=== PATIENT | female | born 1945 | race Caucasian/White ===

== ENCOUNTER → 2017-01-11 | Outpatient (REF) | payer MEDICARE ==
[~2017-01-11] MED LIST: /ESCI20TA; /MOXI40TA; /SUCR1TA; ACET650T12 PO; ALBU83IN INH; ALBUTEROL NEBULIZER; ASPI1TAB PO; ASPIRIN; ATROVENT0.02%; BABY81CH; BUDE20IN; CALCARB; COLA100C PO; COLA100C2; COLA50CA; CRES40TA; CRES40TA PO; FLUC10TA; HYDR-3713 PO; IBUP400T; LEVA750T PO; LEXA1TAB2 PO; LISI-542 PO; LISI10TA4; METO10TA2; MIRA3350 PO; NICO21PAT TD; PRED10TA PO; PRED10TA2; PROAAER; SPIRIVA; TIOT18INH INH; XOPE1.252; [UNRECOGNIZED DRUG - CODE]; [UNRECOGNIZED DRUG - OTHER]; cepacol; robitussin
== END ==
LOC: M LAB REF 13:18
PROVIDERS: ATTEND Internal Medicine Pulmonary Disease
DX: R05 Cough (principal)

== ENCOUNTER → 2017-02-09 | Outpatient (REF) | payer MEDICARE, MEDICAID ==
[~2017-02-09] MED LIST changes: -COLA100C PO; +COLA100C3 PO
== END ==
LOC: M SMT 14:02
PROVIDERS: ATTEND Nurse Practitioner Women's Health
DX: R32 Unspecified urinary incontinence (principal); R39.15 Urgency of urination
CPT/HCPCS: 51798; 81001; 87086; 88108; G0463

== ENCOUNTER → 2017-02-11 | Outpatient (CLI) | payer MEDICARE, MEDICAID ==
[~2017-02-11] MED LIST changes: +COLA100C PO; -COLA100C3 PO
[2017-02-11 14:31] LABS: ANION GAP 7 MEQ/L (8-16); BLOOD UREA NITROGEN 17 MG/DL (7-18); CARBON DIOXIDE LEVEL 31 MEQ/L (21-32); CHLORIDE LEVEL 102 MEQ/L (98-107); CREATININE FOR GFR 0.75 MG/DL (0.55-1.02); GLOMERULAR FILTRATION RATE > 60.0 (>45); GLUCOSE, FASTING 74 MG/DL (80-110); POTASSIUM SERUM 4.6 MEQ/L (3.5-5.1); SODIUM LEVEL 140 MEQ/L (136-145)
== END ==
LOC: M WUC 11:44
PROVIDERS: ATTEND Nurse Practitioner Women's Health
DX: R31.29 Other microscopic hematuria (principal)

== ENCOUNTER → 2017-02-17 | Outpatient (CLI) | payer MEDICARE, MEDICAID ==
[~2017-02-17] MED LIST changes: +ISOVUE-370 76% 100ML VIAL (Q9967) As Ordered ONE
--- NOTE | 2017-02-17 16:30 | REP ---
Clinical: Microscopic hematuria. Technique: Axial precontrast, contrast enhanced, and delayed images of the abdomen and pelvis using 100 ml Isovue 370 intravenous contrast material with coronal and sagittal re-formations. Findings: The bilateral kidneys/ureters and bladder are normal in all phases of enhancement. No nephrolithiasis, hydroureternephrosis, cystic or mass lesion appreciated. Liver, spleen, pancreas, gallbladder, bilateral adrenal glands are normal. The enteric system is without obstruction or acute inflammatory process. Surgical clips in the upper abdomen possibly related to prior hernia repair. Pelvis demonstrates normal bladder and evidence for prior hysterectomy. No ascites. No adenopathy. No mass. No free air. Musculoskeletal structures without focal osseous abnormality. Lung bases suggest emphysematous changes. Impression: 1. Normal urinary tract system. 2. No acute intra-abdominal or pelvic pathology appreciated. Signed by Alex Koenig MD 02/17/2017 04:22 P
== END ==
LOC: M RAD 14:04
PROVIDERS: ATTEND Nurse Practitioner Women's Health
DX: R31.29 Other microscopic hematuria (principal)
CPT/HCPCS: 74178; Q9967

== ENCOUNTER → 2017-08-22 | Outpatient (CLI) | payer MEDICARE, MEDICAID ==
[~2017-08-22] MED LIST changes: -COLA100C PO; +COLA100C5 PO; -ISOVUE-370 76% 100ML VIAL (Q9967) As Ordered ONE; -LEVA750T PO; +LEVA750T7 PO
[2017-08-22 14:35] LABS: MEAN CORPUSCULAR HEMOGLOBIN 30.5 pg (27.0-33.0); MEAN CORPUSCULAR HGB CONC 32.3 g/dl (32.0-36.5); MEAN CORPUSCULAR VOLUME 94.3 fl (80.0-96.0); WHITE BLOOD COUNT 6.8 10^3/uL (4.0-10.0)
[2017-08-22 15:24] LABS: ALBUMIN 3.3 GM/DL (3.2-5.2); ALKALINE PHOSPHATASE 83 U/L (45-117); ALT/SGPT 14 U/L (12-78); ANION GAP 8 MEQ/L (8-16); AST/SGOT 11 U/L (15-37); BILIRUBIN,TOTAL 0.3 MG/DL (0.2-1.0); BLOOD UREA NITROGEN 15 MG/DL (7-18); CARBON DIOXIDE LEVEL 29 MEQ/L (21-32); CHLORIDE LEVEL 101 MEQ/L (98-107); CHOLESTEROL LEVEL 162 MG/DL (<200); CREATININE FOR GFR 0.75 MG/DL (0.55-1.02); GLOMERULAR FILTRATION RATE > 60.0 (>39); GLUCOSE, FASTING 93 MG/DL (83-110); POTASSIUM SERUM 4.9 MEQ/L (3.5-5.1); SODIUM LEVEL 138 MEQ/L (136-145); TOTAL PROTEIN 6.6 GM/DL (6.4-8.2); TRIGLYCERIDES LEVEL 127 MG/DL (<150)
== END ==
LOC: M WUC 08:34
PROVIDERS: ATTEND Family Medicine
DX: M85.9 Disorder of bone density and structure, unspecified (principal); Z79.899 Other long term (current) drug therapy; R31.29 Other microscopic hematuria

== ENCOUNTER → 2017-08-22 | Outpatient (REF) | payer MEDICARE, MEDICAID | LOC: M SMT 13:08 | PROVIDERS: ATTEND Urology | DX: R31.29 Other microscopic hematuria (principal) ==

== ENCOUNTER → 2017-08-25 | Outpatient (CLI) | payer MEDICARE, MEDICAID | LOC: M OT 09:36 | PROVIDERS: ATTEND Nurse Practitioner Family | DX: M18.11 Unilateral primary osteoarthritis of first carpometacarpal joint, right hand (principal) | CPT/HCPCS: 97760; G8984; G8985; G8986 ==

== ENCOUNTER → 2017-09-16 | Outpatient (CLI) | payer MEDICARE, MEDICAID ==
--- NOTE | 2017-09-16 16:40 | REP ---
Low-dose lung screening CT: The study is performed without IV contrast and the images are presented at lung windowing only: Comparison is the chest CT with IV contrast and 12/18/2015. On the current study there are no nodules or masses. There are no infiltrates or effusions. The right upper lobe infiltrates that were present on the comparison study have resolved. Impression: Category [address] low-dose screening chest CT. The recommendation is for annual follow-up low-dose screening chest CT. Signed by Nash Mccrary MD 09/16/2017 04:31 P
== END ==
LOC: M RAD 13:33
PROVIDERS: ATTEND Internal Medicine Pulmonary Disease
DX: Z12.2 Encounter for screening for malignant neoplasm of respiratory organs (principal); F17.218 Nicotine dependence, cigarettes, with other nicotine-induced disorders

== ENCOUNTER → 2017-10-10 | Outpatient (REF) | payer MEDICARE, MEDICAID | LOC: M LAB REF 16:58 | PROVIDERS: ATTEND Internal Medicine Pulmonary Disease | DX: J44.1 Chronic obstructive pulmonary disease with (acute) exacerbation (principal) ==

== ENCOUNTER 2018-01-25 06:20 | Day surgery (SDC) | payer MEDICARE, MEDICAID ==
[~2018-01-25 06:20] MED LIST changes: -/ESCI20TA; -/MOXI40TA; -/SUCR1TA; -ACET650T12 PO; +ACETAMINOPHEN 325 MG TAB PO; -ALBU83IN INH; -ALBUTEROL NEBULIZER; -ASPI1TAB PO; -ASPIRIN; -ATROVENT0.02%; -BABY81CH; -BUDE20IN; -CALCARB; -COLA100C2; -COLA100C5 PO; -COLA50CA; -CRES40TA; -CRES40TA PO; -FLUC10TA; -HYDR-3713 PO; -IBUP400T; -LEVA750T7 PO; -LEXA1TAB2 PO; -LISI-542 PO; -LISI10TA4; -METO10TA2; -MIRA3350 PO; -NICO21PAT TD; -PRED10TA PO; -PRED10TA2; -PROAAER; -SPIRIVA; -TIOT18INH INH; -XOPE1.252; -[UNRECOGNIZED DRUG - CODE]; -[UNRECOGNIZED DRUG - OTHER]; -cepacol; -robitussin
[2018-01-25] MEDS ORDERED: LIDOCAINE 1% MDV 20ML VIAL SQ (06:30)
[2018-01-25] MEDS ORDERED: fentaNYL 100 MCG/2 ML INJECTION (J3010) As Ordered (06:52)
[2018-01-25] MEDS ORDERED: MIDAZOLAM INJ 2 MG/2 ML VIAL (J2250) As Ordered (06:52)
[2018-01-25] MEDS ORDERED: PHENYLEPHRINE HCL 10 % OPHTH. SOL 5ML OD (07:00)
[2018-01-25] MEDS ORDERED: PROPARACAINE 0.5% OPHTH SOL 15ML OD (07:01)
[2018-01-25] MEDS: PHENYLEPHRINE 2.5% OPHTH SOL 2ML OD (07:07)
[2018-01-25] MEDS: CYCLOPENTOLATE 2% OPHTH SOLN 2ML BTL OD (07:07)
[2018-01-25] MEDS: LIDOCAINE 3.5 % 1ML OPHTH TOPICAL GEL OU (07:07)
[2018-01-25] MEDS: OFLOXACIN 0.3 % (OCUFLOX) OPTH SOL 5ML OD (07:07)
[2018-01-25] MEDS: TROPICAMIDE 1% OPHTH SOLN 2ML OD (07:08)
[2018-01-25] MEDS: POVIDONE-IODINE 5% OPHTH PREP SOL 30ML As Ordered (08:57)
[2018-01-25] MEDS: HEALON DUET (HEALON 10MG/ML 0.55ML & HEALON ENDOCOAT 30MG/ML 0.85ML) As Ordered (09:02)
[2018-01-25] MEDS: LIDOCAINE 1% SDV 5 ML VIAL As Ordered (09:02)
[2018-01-25] MEDS: TRIAMCINOLONE PRES FR 40 MG/ML 1ML(TRIESENCE)(OR EYE ONLY)(J3300 PER 1MG) As Ordered (09:02)
[2018-01-25] MEDS: BSS with VANC/TOB/EPI for EYE CASES IR (09:03)
[2018-01-25] MEDS: LIDOCAINE 2% W/EPIN INJ 20ML **PRES FREE As Ordered (09:03)
[2018-01-25] MEDS: MOXIFLOXACIN IN BSS 0.25MG/0.25ML INTRACAMERAL INJ (OR EYE ONLY)(J2280) As Ordered (09:03)
[2018-01-25] MEDS ORDERED: KETOROLAC 0.5% OPHTH SOLN OD (09:30)
[2018-01-25] MEDS ORDERED: ONDANSETRON 4MG/2ML VIAL (J2405) IV (09:30)
[2018-01-25] MEDS ORDERED: TRIMETHOBENZAMIDE 300 MG CAP PO (09:30)
[2018-01-25] MEDS: AcetaZOLAMIDE 500 MG ER CAP PO (09:43)
[2018-01-25] MEDS: ACETAMINOPHEN TAB 650MG DOSE (2X325MG) PO (09:45)
== END 2018-01-25 10:34 | disposition home or self-care (01) ==
LOC: M SDC 06:20
DX: H26.9 Unspecified cataract (principal); I10 Essential (primary) hypertension; E78.5 Hyperlipidemia, unspecified; I73.9 Peripheral vascular disease, unspecified; K44.9 Diaphragmatic hernia without obstruction or gangrene; K21.9 Gastro-esophageal reflux disease without esophagitis; K58.9 Irritable bowel syndrome, unspecified; R29.898 Other symptoms and signs involving the musculoskeletal system; M12.9 Arthropathy, unspecified; M54.9 Dorsalgia, unspecified; M81.0 Age-related osteoporosis without current pathological fracture; C44.311 Basal cell carcinoma of skin of nose; F41.9 Anxiety disorder, unspecified; F32.9 Major depressive disorder, single episode, unspecified; J44.9 Chronic obstructive pulmonary disease, unspecified; T88.59XD Other complications of anesthesia, subsequent encounter; Z88.5 Allergy status to narcotic agent; Z91.030 Bee allergy status; Z91.040 Latex allergy status; Z91.048 Other nonmedicinal substance allergy status; Z86.69 Personal history of other diseases of the nervous system and sense organs; Z90.710 Acquired absence of both cervix and uterus; Z72.0 Tobacco use
CPT/HCPCS: 66984

== ENCOUNTER 2018-03-20 06:09 | Day surgery (SDC) | payer MEDICARE, MEDICAID ==
[~2018-03-20 06:09] MED LIST changes: +LIDOCAINE 1% MDV 20ML VIAL SQ; +SLF 3 ML SYR IV
[2018-03-20] MEDS: OFLOXACIN 0.3 % (OCUFLOX) OPTH SOL 5ML OS (06:50)
[2018-03-20] MEDS: PHENYLEPHRINE 2.5% OPHTH SOL 2ML OS (06:50)
[2018-03-20] MEDS: TROPICAMIDE 1% OPHTH SOLN 2ML OS (06:50)
[2018-03-20] MEDS: CYCLOPENTOLATE 2% OPHTH SOLN 2ML BTL OS (06:50)
[2018-03-20] MEDS: LIDOCAINE 3.5 % 1ML OPHTH TOPICAL GEL OU (06:51)
[2018-03-20] MEDS ORDERED: PHENYLEPHRINE HCL 10 % OPHTH. SOL 5ML OS (07:00)
[2018-03-20] MEDS ORDERED: fentaNYL 100 MCG/2 ML INJECTION (J3010) As Ordered (07:12)
[2018-03-20] MEDS ORDERED: MIDAZOLAM INJ 2 MG/2 ML VIAL (J2250) As Ordered (07:13)
[2018-03-20] MEDS: POVIDONE-IODINE 5% OPHTH PREP SOL 30ML As Ordered (08:47)
[2018-03-20] MEDS: TRIAMCINOLONE PRES FR 40 MG/ML 1ML(TRIESENCE)(OR EYE ONLY)(J3300 PER 1MG) As Ordered (08:48)
[2018-03-20] MEDS: BSS with VANC/TOB/EPI for EYE CASES IR (08:54)
[2018-03-20] MEDS: LIDOCAINE 1% SDV 5 ML VIAL As Ordered (08:54)
[2018-03-20] MEDS: LIDOCAINE 2% W/EPIN INJ 20ML **PRES FREE As Ordered (08:54)
[2018-03-20] MEDS: HEALON DUET (HEALON 10MG/ML 0.55ML & HEALON ENDOCOAT 30MG/ML 0.85ML) As Ordered (08:54)
[2018-03-20] MEDS: MOXIFLOXACIN IN BSS 0.25MG/0.25ML INTRACAMERAL INJ (OR EYE ONLY)(J2280) As Ordered (08:54)
[2018-03-20] MEDS: AcetaZOLAMIDE 500 MG ER CAP PO (09:23)
[2018-03-20] MEDS ORDERED: TRIMETHOBENZAMIDE 300 MG CAP PO (09:30)
== END 2018-03-20 09:38 | disposition home or self-care (01) ==
LOC: M SDC 06:09
DX: H25.9 Unspecified age-related cataract (principal); I10 Essential (primary) hypertension; E78.5 Hyperlipidemia, unspecified; K44.9 Diaphragmatic hernia without obstruction or gangrene; Z91.040 Latex allergy status; Z91.030 Bee allergy status; Z79.51 Long term (current) use of inhaled steroids; Z79.899 Other long term (current) drug therapy; Z79.82 Long term (current) use of aspirin; J44.9 Chronic obstructive pulmonary disease, unspecified; F17.210 Nicotine dependence, cigarettes, uncomplicated; I73.9 Peripheral vascular disease, unspecified
CPT/HCPCS: 66984

== ENCOUNTER → 2018-04-20 | Outpatient (CLI) | payer MEDICARE, MEDICAID ==
[2018-04-20 09:40] LABS: BASO # 0.1 10^3/uL (0.0-0.2); BASO % 1.3 % (0.0-1.0); EOS # 0.2 10^3/uL (0.0-0.50); EOS % 2.1 % (0.0-3.0); HEMATOCRIT 41.3 % (36.0-47.0); HEMOGLOBIN 13.3 g/dl (12.0-15.5); IMMATURE GRANULOCYTE % 0.1 % (0-3.0); LYMPH # 2.3 10^3/uL (1.5-4.5); LYMPH % 32.9 % (24.0-44.0); MEAN CORPUSCULAR HEMOGLOBIN 28.5 pg (27.0-33.0); MEAN CORPUSCULAR HGB CONC 32.2 g/dl (32.0-36.5); MEAN CORPUSCULAR VOLUME 88.6 fl (80.0-96.0); MONO # 0.7 10^3/uL (0.0-0.8); MONO % 9.7 % (0.0-5.0); NEUTROPHILS # 3.8 10^3/uL (1.8-7.7); NEUTROPHILS % 53.9 % (36.0-66.0); PLATELET COUNT, AUTOMATED 482 10^3/uL (150-450); RED BLOOD COUNT 4.66 10^6/uL (4.00-5.40); RED CELL DISTRIBUTION WIDTH 15.9 % (11.5-14.5); WHITE BLOOD COUNT 7.1 10^3/uL (4.0-10.0)
[2018-04-20 10:13] LABS: ALBUMIN 3.3 GM/DL (3.2-5.2); ALBUMIN/GLOBULIN RATIO 1.03 (1.00-1.93); ALKALINE PHOSPHATASE 73 U/L (45-117); ALT/SGPT 11 U/L (12-78); ANION GAP 5 MEQ/L (8-16); AST/SGOT 12 U/L (7-37); BILIRUBIN,TOTAL 0.2 MG/DL (0.2-1.0); BLOOD UREA NITROGEN 20 MG/DL (7-18); CALCIUM LEVEL 8.4 MG/DL (8.8-10.2); CARBON DIOXIDE LEVEL 29 MEQ/L (21-32); CHLORIDE LEVEL 106 MEQ/L (98-107); CHOLESTEROL LEVEL 149 MG/DL (<200); CHOLESTEROL RISK RATIO 2.483 (<5); CREATININE FOR GFR 0.68 MG/DL (0.55-1.30); FERRITIN 6 NG/ML (8-252); GLOMERULAR FILTRATION RATE > 60.0 (>39); GLUCOSE, FASTING 91 MG/DL (70-100); HDL CHOLESTEROL 60 MG/DL (>40); IRON (FE) 36 UG/DL (50-170); LDL CHOLESTEROL 73.4 MG/DL (<100); NON-HDL-C 89 MG/DL; PERCENT SATURATION 7.3 % (13.2-45.0); POTASSIUM SERUM 4.8 MEQ/L (3.5-5.1); SODIUM LEVEL 140 MEQ/L (136-145); TOTAL IRON BINDING CAPACITY 491 UG/DL (250-450); TOTAL PROTEIN 6.5 GM/DL (6.4-8.2); TRIGLYCERIDES LEVEL 78 MG/DL (<150)
== END ==
LOC: M WUC 08:12
DX: D50.9 Iron deficiency anemia, unspecified (principal); I10 Essential (primary) hypertension
CPT/HCPCS: 83550

== ENCOUNTER → 2018-11-07 | Outpatient (CLI) | payer MEDICARE, MEDICAID | LOC: M RAD 13:01 | DX: Z12.2 Encounter for screening for malignant neoplasm of respiratory organs (principal); F17.218 Nicotine dependence, cigarettes, with other nicotine-induced disorders | CPT/HCPCS: G0297 ==

== ENCOUNTER → 2019-04-11 | Outpatient (CLI) | payer MEDICARE, MEDICAID ==
[~2019-04-11] MED LIST changes: +ACET650T12 PO; -ACETAMINOPHEN 325 MG TAB PO; +ALBU83IN INH; +ALBUTEROL NEBULIZER; +ANOR1AER; +ARNU1INH3 INH; +ASPI81TA26 PO; +ASPIRIN; +ATROVENT0.02%; +AVEL1TAB2; +BABY81CH; +BUDE20IN; +CALCARB; +COLA100C2; +COLA100C5 PO; +COLA50CA; +COMBAER6; +CRES40TA; +CRES40TA PO; +FLUC10TA; +HYDR-3713 PO; +IBUP400T; +LEVA750T7 PO; +LEXA1TAB2; +LEXA1TAB2 PO; -LIDOCAINE 1% MDV 20ML VIAL SQ; +LISI-542 PO; +LISI10TA4; +METO10TA2; +MIRA3350 PO; +NICO21DI3 TD; +OMEP40CA2 PO; +PRED-351 PO; +PRED10TA2; +PROAAER; -SLF 3 ML SYR IV; +SPIRIVA; +SUCR1TAB56; +TIOT18INH INH; +TYLE500T78 PO; +XOPE1.252; +[UNRECOGNIZED DRUG - CODE]; +[UNRECOGNIZED DRUG - OTHER]; +cepacol; +robitussin
[2019-04-11 09:22] LABS: BASO # 0.1 10^3/uL (0.0-0.2); BASO % 2.3 % (0.0-1.0); EOS # 0.2 10^3/uL (0.0-0.50); EOS % 2.9 % (0.0-3.0); HEMATOCRIT 39.1 % (36.0-47.0); HEMOGLOBIN 12.4 g/dl (12.0-15.5); LYMPH # 2.1 10^3/uL (1.5-4.5); LYMPH % 38.2 % (24.0-44.0); MEAN CORPUSCULAR HEMOGLOBIN 27.4 pg (27.0-33.0); MEAN CORPUSCULAR HGB CONC 31.7 g/dl (32.0-36.5); MEAN CORPUSCULAR VOLUME 86.5 fl (80.0-96.0); MONO # 0.7 10^3/uL (0.0-0.8); MONO % 11.6 % (0.0-5.0); NEUTROPHILS # 2.5 10^3/uL (1.8-7.7); NEUTROPHILS % 44.8 % (36.0-66.0); PLATELET COUNT, AUTOMATED 541 10^3/uL (150-450); RED BLOOD COUNT 4.52 10^6/uL (4.00-5.40); WHITE BLOOD COUNT 5.6 10^3/uL (4.0-10.0)
[2019-04-11 09:47] LABS: ALBUMIN 3.1 GM/DL (3.2-5.2); ALT/SGPT 14 U/L (12-78); BILIRUBIN,TOTAL 0.2 MG/DL (0.2-1.0); BLOOD UREA NITROGEN 17 MG/DL (7-18); CALCIUM LEVEL 8.5 MG/DL (8.8-10.2); CARBON DIOXIDE LEVEL 30 MEQ/L (21-32); CHLORIDE LEVEL 103 MEQ/L (98-107); CHOLESTEROL LEVEL 157 MG/DL (<200); CHOLESTEROL RISK RATIO 2.275 (<5); CREATININE FOR GFR 0.64 MG/DL (0.55-1.30); FERRITIN 7 NG/ML (8-252); GLOMERULAR FILTRATION RATE > 60.0 (>39); GLUCOSE, FASTING 95 MG/DL (70-100); HDL CHOLESTEROL 69 MG/DL (>40); IRON (FE) 29 UG/DL (50-170); LDL CHOLESTEROL 70 MG/DL (<100); NON-HDL-C 88 MG/DL; PERCENT SATURATION 5.8 % (13.2-45.0); POTASSIUM SERUM 4.9 MEQ/L (3.5-5.1); SODIUM LEVEL 139 MEQ/L (136-145); TOTAL IRON BINDING CAPACITY 497 UG/DL (250-450); TOTAL PROTEIN 6.8 GM/DL (6.4-8.2); TRIGLYCERIDES LEVEL 92 MG/DL (<150)
[2019-04-11 09:53] LABS: TOTAL 25(OH) VITAMIN D 17.9 NG/ML (30.0-100.0)
== END ==
LOC: M WUC 08:11
PROVIDERS: ATTEND Family Medicine
DX: M85.9 Disorder of bone density and structure, unspecified (principal); D50.9 Iron deficiency anemia, unspecified; E78.5 Hyperlipidemia, unspecified

== ENCOUNTER 2020-01-04 13:51 | Emergency (ER) | payer MEDICARE, MEDICAID ==
[~2020-01-04] VITALS: Ht 160 cm; Wt 61.4 kg
[~2020-01-04 13:51] MED LIST changes: -OMEP40CA2 PO; +OMEP40CA97 PO
[2020-01-04 13:55] VITALS: BP 188/85
[2020-01-04] MEDS ORDERED: ACETAMINOPHEN 500 MG TAB PO ONE (14:15)
--- NOTE | 2020-01-04 14:35 | REP ---
CT brain without contrast: History: Trauma. Comparison CT study April 14, 2013. Findings: Preliminary digital confectionery maker radiograph is unremarkable. Bone window settings demonstrate an intact bony calvarium. No skull fracture is seen. There is mild vascular calcification noted at the distal internal carotid arteries. On soft tissue window settings, lateral, third, and fourth ventricles are normal in size and position. Lopez-white differentiation pattern is normal above and below the tentorium. There is no evidence of intracranial hemorrhage. No extra-axial fluid collection is seen. No mass or midline shift is observed. Impression: Mild vascular calcification. Otherwise negative noncontrast head CT. No skull fracture or intracranial injury. Electronically Signed by David Robins MD 01/04/2020 03:52 P
--- NOTE | 2020-01-04 14:36 | REP ---
CT study of the cervical spine without contrast: History: Trauma. Comparison CT study of the cervical spine is from April 25, 2013. Technique: Helical scanning is acquired and overlapping 2 mm high resolution axial images were generated and reviewed at bone and soft tissue window settings. Coronal and sagittal multiplanar re-formations images are generated. CT findings: The vertebral body heights are preserved and alignment is normal. The patient is status post anterior cervical discectomy and fusion plating across the C5-6 level as seen previously. No fracture is seen. 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 Osteoarthritis is seen at the articulation between the dens and the anterior arch of C1 similar to the prior study. At C2-3, there is a broad-based left central disc bulge or protrusion which is unchanged. There is disc bulging centrally at C3-4 also unchanged. Impression: Degenerative spondylosis changes. Status post surgical fusion C5-6. No traumatic abnormality is appreciated. Electronically Signed by David Robins MD 01/04/2020 03:52 P
--- NOTE | 2020-01-04 14:45 | REP ---
Maxillofacial CT study without contrast: History: Facial injury. Findings: Orbital margins are intact. Paranasal sinus margins are intact. No intraorbital abnormality is seen. The maxillary, ethmoid, and small frontal sinuses are clear. Sphenoid and mastoid aeration is normal. There is some vascular calcification in the distal carotid arteries. No mandibular or maxillary fracture is seen. Zygomatic arches are intact. The patient is edentulous. No nasal or inferior maxillary spine fracture is appreciated. There is soft tissue swelling in the left malar region with a 1.1 cm hematoma overlying the anterior aspect of the left zygomatic arch. Impression: No facial fracture seen. There is a left malar/cheek hematoma with swelling surrounding it. Electronically Signed by David Robins MD 01/04/2020 03:53 P
== END 2020-01-04 15:24 | disposition home or self-care (01) ==
LOC: M ED 13:51
DX: S00.93XA Contusion of unspecified part of head, initial encounter (principal); W01.190A Fall on same level from slipping, tripping and stumbling with subsequent striking against furniture, initial encounter; Y92.019 Unspecified place in single-family (private) house as the place of occurrence of the external cause; M47.812 Spondylosis without myelopathy or radiculopathy, cervical region; M43.22 Fusion of spine, cervical region; J44.9 Chronic obstructive pulmonary disease, unspecified; I10 Essential (primary) hypertension; E78.5 Hyperlipidemia, unspecified; I73.9 Peripheral vascular disease, unspecified; F17.210 Nicotine dependence, cigarettes, uncomplicated; Z88.5 Allergy status to narcotic agent; Z91.048 Other nonmedicinal substance allergy status; Z91.030 Bee allergy status; Z91.040 Latex allergy status; Z79.51 Long term (current) use of inhaled steroids; Z79.899 Other long term (current) drug therapy

== ENCOUNTER → 2020-01-23 | Outpatient (REF) | payer MEDICARE, MEDICAID ==
[2020-01-23 15:43] LABS: BASO # 0.1 10^3/uL (0.0-0.2); BASO % 1.6 % (0.0-1.0); EOS # 0.1 10^3/uL (0.0-0.5); EOS % 1.8 % (0.0-3.0); HEMATOCRIT 38.6 % (36.0-47.0); HEMOGLOBIN 12.2 g/dl (12.0-15.5); LYMPH # 1.1 10^3/uL (1.5-5.0); LYMPH % 22.5 % (24.0-44.0); MEAN CORPUSCULAR HEMOGLOBIN 28.2 pg (27.0-33.0); MEAN CORPUSCULAR HGB CONC 31.6 g/dl (32.0-36.5); MEAN CORPUSCULAR VOLUME 89.1 fl (80.0-96.0); MONO # 0.4 10^3/uL (0.0-0.8); MONO % 7.9 % (0.0-5.0); NEUTROPHILS # 3.3 10^3/uL (1.5-8.5); PLATELET COUNT, AUTOMATED 401 10^3/uL (150-450); RED BLOOD COUNT 4.33 10^6/uL (4.00-5.40); WHITE BLOOD COUNT 4.9 10^3/uL (4.0-10.0)
[2020-01-23 16:16] LABS: ALBUMIN 3.7 GM/DL (3.2-5.2); ALT/SGPT 12 U/L (12-78); BILIRUBIN,TOTAL 0.3 MG/DL (0.2-1.0); BLOOD UREA NITROGEN 18 MG/DL (7-18); CALCIUM LEVEL 8.9 MG/DL (8.8-10.2); CARBON DIOXIDE LEVEL 32 MEQ/L (21-32); CHLORIDE LEVEL 101 MEQ/L (98-107); CREATININE FOR GFR 0.72 MG/DL (0.55-1.30); GLOMERULAR FILTRATION RATE > 60.0 (>39); GLUCOSE, FASTING 78 MG/DL (70-100); POTASSIUM SERUM 4.6 MEQ/L (3.5-5.1); SODIUM LEVEL 135 MEQ/L (136-145); TOTAL PROTEIN 6.9 GM/DL (6.4-8.2)
[2020-01-23 16:22] LABS: TOTAL 25(OH) VITAMIN D 49.8 NG/ML (30.0-100.0)
== END ==
LOC: M LABDRAW1 13:52
PROVIDERS: ATTEND Family Medicine
DX: M85.9 Disorder of bone density and structure, unspecified (principal); I10 Essential (primary) hypertension